=== PATIENT | female | born 1975 | race Two or more races ===

== ENCOUNTER 2021-01-15 23:25 | Emergency (ER) | payer MEDICAID ==
[~2021-01-15] VITALS: Ht 165.1 cm; Wt 79.4 kg
--- NOTE | 2021-01-15 23:30 | NUR ---
Pt. bib RA 100 for abdominal pain post op. Pain originates in upper abdomen, worsesns with palpation. Pt has had n/v and pain past 3 days. Pt. reported to have autoimmune hepatitis. Pt. had Lower abdomen surgery for this condition at [facility] 3 days ago. Pt. vomited 1x when ems arrived, stated vomiting hurt her lower abdomen incision. BGC was 121 in field, vs 122/80, hr 108, spo2 100 in field.
[2021-01-15] MEDS ORDERED: HYDROMORPHONE 1 MG/1 ML DISP.SYRIN IV ONE (23:45)
[2021-01-15] MEDS ORDERED: ONDANSETRON 4 MG/2 ML VIAL IV ONE (23:45)
[2021-01-15] MEDS ORDERED: FAMOTIDINE. 20 MG/2 ML VIAL IV ONE (23:45)
[2021-01-15] MEDS ORDERED: IV NORMAL SALINE 1000 ML BAG IV ONE (23:45)
[2021-01-16] MEDS ORDERED: ONDANSETRON 4 MG/2 ML VIAL ONE (00:03)
[2021-01-16] MEDS ORDERED: HYDROMORPHONE 1 MG/1 ML DISP.SYRIN ONE ×3 (00:04→02:50)
[2021-01-16] MEDS ORDERED: FAMOTIDINE. 20 MG/2 ML VIAL IV ONE (00:04)
[2021-01-16 00:10] LABS: HEMATOCRIT 37.2 % (31.2-41.9); MEAN CORPUSCULAR HEMOGLOBIN 31.4 uug (24.7-32.8); MEAN CORPUSCULAR VOLUME 93.1 fL (75.5-95.3); PLATELET COUNT (AUTO) 512 K/uL (179-408)
[2021-01-16 00:26] LABS: BILIRUBIN,DIRECT 0.1 mg/dL (0.0-0.2); BILIRUBIN,TOTAL 0.5 mg/dL (0.2-1.0); CREATININE 0.8 mg/dL (0.6-1.3); TOTAL PROTEIN, SERUM 8.4 g/dL (6.4-8.2)
[2021-01-16] MEDS ORDERED: IOHEXOL 300MG/ML 100 ML INFUS..BTL ONE (00:47)
[2021-01-16] MEDS ORDERED: SWABABLE VALVE TRANSFER SET EA MC ONE (00:47)
[2021-01-16] MEDS ORDERED: IV NORMAL SALINE 250 ML IV ONE (00:48)
--- NOTE | 2021-01-16 01:12 | NUR ---
pt returned from ct
[2021-01-16] MEDS ORDERED: ONDA4TAB5 PO (01:21)
[2021-01-16] MEDS ORDERED: LORA-258 PO (01:21)
[2021-01-16] MEDS ORDERED: IBUP-1955 PO (01:21)
[2021-01-16] MEDS ORDERED: DOCU-141 PO (01:21)
[2021-01-16] MEDS ORDERED: TRAM50TA2 PO (01:21)
[2021-01-16] MEDS ORDERED: OMEP20CA15 PO (01:21)
[2021-01-16] MEDS ORDERED: AZAT50TA18 PO (01:21)
[2021-01-16] MEDS ORDERED: GABA-532 PO (01:21)
[2021-01-16] MEDS ORDERED: HYDROMORPHONE 1 MG/1 ML DISP.SYRIN IV ONE (02:00)
--- NOTE | 2021-01-16 02:30 | NUR ---
Patient does not wish to proceed with medical care recommended by Dr. Albert. Patient given information related to possible complications, up to and including , which could occur as a result of leaving the hospital at this time. Patient verbalizes understanding of risks involved due to leaving against medical advice. Patient's has signed AMA form. Pts. transported pt. out of hospital.
[2021-01-16 04:41] VITALS: BP 117/77
== END 2021-01-16 02:30 | disposition left against medical advice (07) ==
LOC: ER 23:30
DX: K56.609 Unspecified intestinal obstruction, unspecified as to partial versus complete obstruction (principal); Z90.49 Acquired absence of other specified parts of digestive tract; Z90.710 Acquired absence of both cervix and uterus
CPT/HCPCS: 36415; 71045; 74177; 76705; 80048; 80076; 83690; 84484; 85025; 85730; 86850; 86900; 86901; 93005; 96361; 96374; 96375 ×2; 96376; 99285; J1170 ×2; J2405 ×2; J3490; Q9967; 70030-TC; J7050